=== PATIENT | female | born 1955 | race Caucasian/White ===

== ENCOUNTER 2017-08-04 22:19 | Inpatient (IN) | payer OTHER ==
[~2017-08-04] VITALS: Ht 170.2 cm; Wt 52.9 kg
[2017-08-04] MEDS ORDERED: NURSING VERBAL MED ORDER ONE (23:00)
[2017-08-04] MEDS ORDERED: NMN10 PO (23:04)
[2017-08-04] MEDS ORDERED: FAMO20TA11 PO (23:04)
[2017-08-04] MEDS ORDERED: DONE10TA12 PO (23:04)
[2017-08-04] MEDS ORDERED: PHEN1TAB86 PO (23:04)
[2017-08-04] MEDS ORDERED: CALC500C70 PO (23:06)
[2017-08-04] MEDS ORDERED: FOLI1TAB7 PO (23:06)
[2017-08-04] MEDS ORDERED: DIPH1TAB87 PO (23:11)
[2017-08-04] MEDS ORDERED: PHEN-310 PO (23:11)
[2017-08-04] MEDS ORDERED: DLN100 PO (23:13)
[2017-08-04] MEDS ORDERED: PATIENT'S ALLERGY INFO NEEDS ENTERED SCH (23:30)
[2017-08-05] MEDS ORDERED: SODIUM CHLORIDE 0.65% NA SOLN 45 ML (OCEAN) PRN (00:15)
[2017-08-05] MEDS ORDERED: MAGNESIUM HYDROXIDE SUSP 30 ML UDC PO PRN (00:15)
[2017-08-05] MEDS ORDERED: BISMUTH SUBSALICYLATE PER ML OMNICELL CHARGE PO PRN (00:15)
[2017-08-05] MEDS ORDERED: ACETAMINOPHEN 325 MG TAB PO PRN (00:15)
[2017-08-05] MEDS ORDERED: ALUMINUM/MAGNESIUM SUSP 30 ML UDC PO PRN (00:15)
[2017-08-05] MEDS ORDERED: PHENOBARBITAL 32.4 MG TAB PO ONE (00:30)
[2017-08-05 00:36] VITALS: BP 123/77; PULSE 78; TEMP 36.4; Ht 170.2 cm; Wt 52.9 kg
[2017-08-05 06:48] VITALS: BP_SYST 105; BP_SYST 111; BP_DIAS 67; BP_DIAS 76; PULSE 92; PULSE 99; TEMP 36.8
[2017-08-05] MEDS: FAMOTIDINE 20 MG TAB PO SCH (09:28)
[2017-08-05] MEDS: MEMANTINE 10 MG TAB PO SCH ×2 (09:28→21:54)
[2017-08-05] MEDS: NICOTINE 21 MG/24 HR TDSY TD SCH (09:34)
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
[2017-08-05] MEDS: CALCIUM 600MG + VIT D 400 IU TAB PO SCH (12:33)
[2017-08-05] MEDS ORDERED: POLYETHYLENE (MIRALAX) 17 GM PACK PO PRN (13:30)
[2017-08-05] MEDS: DONEPEZIL HCL 10 MG TAB PO SCH (21:54)
[2017-08-05] MEDS ORDERED: PHENOBARBITAL 32.4 MG TAB PO SCH (22:00)
[2017-08-06 06:42] VITALS: BP_SYST 102; BP_SYST 92; BP_DIAS 63; BP_DIAS 68; PULSE 88; PULSE 97; TEMP 36.4
[2017-08-06] MEDS: FAMOTIDINE 20 MG TAB PO SCH (08:49)
[2017-08-06] MEDS: MEMANTINE 10 MG TAB PO SCH ×2 (08:49→22:24)
[2017-08-06] MEDS: NICOTINE 21 MG/24 HR TDSY TD SCH (08:49)
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
[2017-08-06] MEDS: CALCIUM 600MG + VIT D 400 IU TAB PO SCH (12:44)
[2017-08-06] MEDS ORDERED: NURSING VERBAL MED ORDER ONE ×2 (15:15)
[2017-08-06] MEDS: DONEPEZIL HCL 10 MG TAB PO SCH (22:22)
[2017-08-06] MEDS: PHENYTOIN SODIUM ER 100 MG CAP PO SCH (22:23)
[2017-08-06] MEDS: PHENOBARBITAL 32.4 MG TAB PO SCH (22:24)
[2017-08-07 06:46] VITALS: BP_SYST 108; BP_SYST 94; BP_DIAS 65; BP_DIAS 73; PULSE 71; PULSE 78; TEMP 36.5
--- NOTE | 2017-08-07 08:31 | Psychiatric Progress Notes ---
Progress Note Date of Service Aug 07, 2017. Interval History Joan Flores is a 61-year-old female who currently lives in [place] with her daughter, has a history of dementia, genetic brain injury, and seizures, and presented as a referral from [facility] in [place] for worsening depression, suicidality, and an overdose on medications the night prior. She is admitted on a 302 involuntary commitment. Chief Complaint "I just got some really terrible news from my daughter". Subjective Patient was seen & assessed interval progress reviewed with Treatment Team. Staff report she had a family meeting with her 2 daughters by phone yesterday which went poorly. They shared that she has been calling them the past 2 days expressing suicidal thoughts, saying she doesn't want to live as everything has been taken from her. She blamed her daughters for her hospitalization and said she has no reason to live. Her daughters said the transition has been difficult for her, and they were willing to help her work on getting her own place eventually. Her daughter Arely is going to help her out with filing for bankruptcy, and agreed to manage her medications, but the patient refused to allow that (although she did agree that her daughter can keep the pills locked up for safety). The patient was angry, yelling, and pounding on the table. She complained both about feeling that too much is asked of her, and also that she is not being asked to help enough. Daughters feel like they are walking on eggshells and believe whatever approach they take will upset the patient. The patient said that it is too much to expect her to make suppers for the children , but when her daughter said that they could work out a meal schedule or plan, she got upset. Daughters do believe that patient has enough space in the home, as she has two rooms that are hers. They are concerned because she has left medicines out with young children present who could easily take her meds by mistake. Patient told her daughters that prior to her dying that he said that she should pick out a couple of places where she could go and that she should never tell her daughters where she is, and made comments about just leaving and driving somewhere after discharge. She was observed on the phone this morning, was distraught and wailing, and told staff that she received bad news about a custody bose over her grandson. She says she just found out that her daughter's youngest son may be taken away, as his paternal grandparents are filing for custody. She feels she is "needed at home," as the whole family is upset. She is tearful talking about her daughter's problems. She says she feels "calmer" and more stable, and denies SI. When asked about the statements she made to her daughters that concerned them, she says it was taken out of context , and that she does not want to hurt herself. She is now saying she will go back to live with her daughter, but also might go back to [facility] [place], as she "has to be a witness for my daughter." She continues to say she is "stable, I can drive," and is refusing to follow recommendations that she not drive, "I'm going to bose that! I know what roads to take across the [place], I've driven across it too many times!" She admits that she has dementia, but says now that she is back on "the dementia meds, my memory will come back." She says she is demanding to leave within 24 hours, or she will file a lawsuit. Sleep Information Total Hours of Sleep: 5.50 Meal Information Percent of Breakfast Consumed: 100 Percent of Lunch Consumed: 100 Percent of Dinner Consumed: 100 Mental Status Exam During interview pt is: alert and oriented, cooperative Appearance: appropriately dressed, disheveled, other (thin, unkempt) Eye contact is: fair Motor behavior is: steady gait & station, no abnormal motor movements Speech: is pressured, other (hyperverbal, loud, angry tone) Affect: irritable, angry, other (incongruent with stated mood) Mood is: other ("calmer") Thought process: tangential, other (frequently answers with unrelated information, required frequent redirection) Thought content: cognitive distortions, reality based without delusions Suicidal thought are: denied Homicidal thoughts are: denied Hallucinations: denies auditory, denies visual Cognition: language grossly intact, other (memory and attention impaired - scored 17/30 on the MOCA) Intelligence estimated to be: average Insight: impaired Judgement: impaired Impression This is a 61-year-old white female with an unclear psychiatric history ( at times denies any psych history, but at other times states she saw a psychiatrist years ago but can give no further information), also with a history of multiple traumatic brain injuries, epilepsy, and dementia, who presents with worsening mood and suicidality, and a possible overdose on prescription medication (Dilantin level elevated). Her daughter found her in the basement making statements about dying with pills scattered around her, and her phenytoin level was elevated, but the patient denies overdosing. She does admit to worsening mood with depression, irritability, and disrupted sleep, and this could represent a bipolar disorder or major depression, although accurate diagnosis is limited by the patient's cognitive dysfunction. Neurology consultation was requested regarding options with her seizure medications, as she is on phenytoin and phenobarbital, and has not been taking them appropriately; they recommended a lower dose of Dilantin and correction attempt to decrease phenobarbital, and addition of lamotrigine. She had a meeting with both daughters 08/06 which did not go well, as there are numerous stresses and the patient has poor insight. She is denying SI and engaging in treatment, and I do not believe she will meet 303 criteria. She will need outpatient follow- up with a psychiatrist and neurologist. Plan (1) Bipolar disorder Differential includes major depression, bipolar type I, mood disorder due to a general medical condition (TBI). Get collateral information from her daughter, and schedule a family meeting. Patient did not want discuss medications today, and cannot state if she has ever been on an antidepressant or mood stabilizer in the past. Based on information we have so far, I would be in favor of a trial of an antiepileptic mood stabilizer such as Depakote or lamotrigine. We will ask neurology for their input regarding her seizure medications as well. Continue to monitor for mood symptoms here, and she will need referral for outpatient mental health treatment, including a psychiatrist and a therapist. 08/06 - Patient demonstrates mood lability, with mixed depressive and manic symptoms ( prominently irritability without euphoria); most accurate diagnosis is bipolar disorder. - Lability is slightly improved from admission, likely due to removal from her stressful environment at her daughter's home. After discussion with Dr. Wong of neurology, I will start lamotrigine 25 mg daily to target both mood and seizures, and this can be titrated up as an outpatient over the next month. - Family meeting with daughters by phone today to discuss stressors at home and her living situation and safety plan for discharge planning. - Daughter would like her to follow-up with psychiatric services at [facility] in [place]. 08/07 - Continue current plan. Referred to [facility] for OP psychiatric services. - FM held yesterday, patient was labile and agitated, and daughter agreed to te all meds for safety. Daughters were also informed of medical recommendation that she not drive, although patient is stating she will not follow this. - Pt denying SI and is participating in treatment, and although slightly improved, still agitated and labile. However, will not meet 303 criteria, and is asking to leave. Will continue involuntary admission at this time as she would benefit from further stabilization prior to discharge. Will involve daughters in discharge planning as well. (2) Seizure disorder 08/05 - Hold phenytoin his level remains elevated, continue phenobarbital, and consult neurology for recommendations regarding her seizure medications. I'm wondering if it would be appropriate to switch her to something like Depakote or lamotrigine, which could also be helpful for mood stabilization, as I'm somewhat concerned about her being on phenobarbital and phenytoin, especially if she is not taking them appropriately which is likely given her elevated level. I'm also concerned about the overdose potential given her suicidality. She will likely need an outpatient neurologist to follow-up with on discharge. 08/06 - Reviewed case with Dr. Wong, appreciate recommendations. Rechecked phenytoin level today, and she is no longer toxic, so will resume a lower dose of 400 mg daily at bedtime tonight. She will need a repeat level in 5-7 days. - Continue home dose of phenobarbital, as Dr. Wong did not think it would be easy to get her off this medication, although she may be able to taper slowly off of it over a period of months. Ideally she would not be on medications that are dangerous in overdose or oversedating/cognitively impairing, given her erratic use of medications at home and noncompliance with prescribed doses, as well as the risk of intentional overdose. - Start lamotrigine 25 mg daily as above. - Daughter would like patient referred to neurology [facility] in [place] for outpatient follow-up. 08/07 - Continue current plan. (3) Dementia Continue Aricept, and attempt to get outpatient neurology records from [place]. She will need referral to follow-up with a neurologist in [place]. 08/06 - outpatient neurology records from [place] received and reviewed. - Patient scored a 17 out of 30 on the MOCA, and advised her that she should not drive until she has had some additional testing as I'm concerned about her cognitive limitations. [employer] TOM initial reporting form submitted. Discharge / Aftercare Planning Primary Care Physician: Name: PCP in [facility] Psychiatrist: Name: Sushantnehal Darling Kathleen Appointment Notes: They will call you at home to schedule appointment. Therapist: Name: .Clarissa [place] Appointment Notes: They will call you at home to schedule appointment Planning Director: Name: none Visit Code E&M Code: 08459 Inventory Assets Strengths: supportive family, has housing Risk Factors Assessment : Yes /single/: Yes Higher / Fall in social status: Yes Health problems: Yes Mental Health Diagnoses: Yes Substance use disorders: No Previous attempt: Yes Family history of suicide: No Previous psychiatric stay: No Hopelessness: Yes Smoker: Yes Protective Factors Assessment : No Responsible for young children: No Employed: No Stable relationships: No Supportive family: Yes Good rapport with provider: No Data Vital Signs Last 24 Hrs: Date Time Temp Pulse Resp B/P (MAP) Pulse Ox O2 Delivery O2 Flow Rate FiO2 08/07/17 06:46 36.5 78 16 108/73 71 94/65 Meds Administered Last 24 Hrs: Meds Administered (Past 24Hrs) Medications (Trade) Dose Ordered Sig/Bre Route Start Time Stop Time Status Last Admin Dose Admin Nicotine (Nicoderm Cq 21MG Patch) 1 patch QAM TD 08/05/17 09:00 09/04/17 08:59 08/06/17 08:49 1 PATCH Donepezil HCl (Aricept Tab) 10 mg HS PO 08/05/17 22:00 09/04/17 21:59 08/06/17 22:22 10 MG Memantine (Namenda Tab) 10 mg BID PO 08/05/17 09:00 09/04/17 08:59 08/06/17 22:24 10 MG Famotidine (Pepcid Tab) 20 mg DAILY PO 08/05/17 09:00 09/04/17 08:59 08/06/17 08:49 20 MG Folic Acid (Folvite Tab) 1 mg DAILY PO 08/05/17 09:00 09/04/17 08:59 08/06/17 08:49 1 MG Calcium/Vitamin D (Caltrate Plus Tab) 1 tab DAILY@1200 PO 08/05/17 12:00 09/04/17 11:59 08/06/17 12:44 1 TAB Diphenhydramine HCl (Benadryl Cap) 25 mg HS PO 08/06/17 00:30 09/05/17 00:29 08/06/17 22:24 25 MG Phenobarbital (Phenobarbital Tab) 64.8 mg HS PO 08/06/17 22:00 09/05/17 21:59 08/06/17 22:24 64.8 MG Lamotrigine (Lamictal Tab) 25 mg 1035 ONCE PO 08/06/17 10:35 08/06/17 11:32 DC 08/06/17 12:44 25 MG Phenytoin Sodium (Dilantin Er Cap) 400 mg HS PO 08/06/17 22:00 09/05/17 21:59 08/06/17 22:23 400 MG Lab Results Last 24 Hrs: Last 24 Hours Test 08/06/17 11:05 Phenytoin (Dilantin) Level 14.2 mcg/mL Problem Qualifiers (1) Bipolar disorder: Active/Remission status: currently active Current bipolar episode type: mixed Current episode severity: unspecified Qualified Codes: F31.60 - Bipolar disorder, current episode mixed, unspecified
[2017-08-07] MEDS: FAMOTIDINE 20 MG TAB PO SCH (08:33)
[2017-08-07] MEDS: NICOTINE 21 MG/24 HR TDSY TD SCH (08:34)
[2017-08-07] MEDS: MEMANTINE 10 MG TAB PO SCH ×2 (08:34→21:08)
[2017-08-07] MEDS: CALCIUM 600MG + VIT D 400 IU TAB PO SCH (14:22)
[2017-08-07] MEDS: NICOTINE POLACRILEX 2 MG GUM MT PRN (19:36)
[2017-08-07] MEDS: PHENOBARBITAL 32.4 MG TAB PO SCH (21:09)
[2017-08-07] MEDS: DONEPEZIL HCL 10 MG TAB PO SCH (21:10)
[2017-08-07] MEDS: PHENYTOIN SODIUM ER 100 MG CAP PO SCH (21:11)
[2017-08-08 06:34] VITALS: BP_SYST 100; BP_SYST 89; BP_DIAS 60; BP_DIAS 70; PULSE 80; PULSE 84; TEMP 36.7
[2017-08-08] MEDS: MEMANTINE 10 MG TAB PO SCH ×2 (07:54→21:43)
[2017-08-08] MEDS: NICOTINE 21 MG/24 HR TDSY TD SCH (07:54)
[2017-08-08] MEDS: FAMOTIDINE 20 MG TAB PO SCH (07:54)
--- NOTE | 2017-08-08 08:25 | Psychiatric Progress Notes ---
Progress Note Date of Service Aug 08, 2017. Interval History Joan Flores is a 61-year-old female who currently lives in [place] with her daughter, has a history of dementia, genetic brain injury, and seizures, and presented as a referral from [facility] in [place] for worsening depression, suicidality, and an overdose on medications the night prior. She is admitted on a 302 involuntary commitment. Chief Complaint "Look at these pants my daughter brought me to wear!" Subjective Patient was seen & assessed interval progress reviewed with Nursing. Staff report she attended groups, was talkative and at times went off on tangents, but was redirectable. Although she was distraught and crying on the phone, she then attended group and rated her mood a 10 out of 10. Today, she says mood has improved, as she talked to her daughters and they made a plan for her to come home tomorrow, her BECCA is taking time off work to come get her, and she feels calmer today. She talked to her daughters some more about the CYS case with her grandson, and feels reassured that they are taking care of it, and says her daughter has a pack train driver and won't have to go to [place] to go to court, but can do it over the phone in Aug. She hopes they will be able to collect signatures of people to support the in court as good caregivers for the child. She says her mood is improving, feels less angry and labile, and denies SI. She denies side effects to medications. Sleep Information Total Hours of Sleep: 5.75 Meal Information Percent of Breakfast Consumed: 100 Percent of Lunch Consumed: 100 Percent of Dinner Consumed: 95 Mental Status Exam During interview pt is: alert and oriented, cooperative Appearance: appropriately dressed, disheveled, other (thin, unkempt, malodorous ) Eye contact is: fair Motor behavior is: steady gait & station, no abnormal motor movements Speech: normal in rate, rhythm & volume (spontaneous, hyperverbal, less pressured) Affect: constricted, other (incongruent with stated mood) Mood is: other ("getting better each day") Thought process: circumstantial Thought content: cognitive distortions, reality based without delusions Suicidal thought are: denied Homicidal thoughts are: denied Hallucinations: denies auditory, denies visual Cognition: language grossly intact, other (memory and attention impaired - scored 17/30 on the MOCA) Intelligence estimated to be: average Insight: fair Judgement: fair Impression This is a 61-year-old white female with an unclear psychiatric history ( at times denies any psych history, but at other times states she saw a psychiatrist years ago but can give no further information), also with a history of multiple traumatic brain injuries, epilepsy, and dementia, who presents with worsening mood and suicidality, and a possible overdose on prescription medication (Dilantin level elevated). Her daughter found her in the basement making statements about dying with pills scattered around her, and her phenytoin level was elevated, but the patient denies overdosing. She does admit to worsening mood with depression, irritability, and disrupted sleep, and this could represent a bipolar disorder or major depression, although accurate diagnosis is limited by the patient's cognitive dysfunction. Neurology consultation was requested regarding options with her seizure medications, as she is on phenytoin and phenobarbital, and has not been taking them appropriately; they recommended a lower dose of Dilantin and terminal operator attempt to decrease phenobarbital, and addition of lamotrigine. She had a meeting with both daughters 08/06 which did not go well, as there are numerous stresses and the patient has poor insight. She is denying SI and engaging in treatment, and I do not believe she will meet 303 criteria, and we are planning for discharge 08/09. She will need outpatient follow-up with a psychiatrist and neurologist. Plan (1) Bipolar disorder Differential includes major depression, bipolar type I, mood disorder due to a general medical condition (TBI). Get collateral information from her daughter, and schedule a family meeting. Patient did not want discuss medications today, and cannot state if she has ever been on an antidepressant or mood stabilizer in the past. Based on information we have so far, I would be in favor of a trial of an antiepileptic mood stabilizer such as Depakote or lamotrigine. We will ask neurology for their input regarding her seizure medications as well. Continue to monitor for mood symptoms here, and she will need referral for outpatient mental health treatment, including a psychiatrist and a therapist. 08/06 - Patient demonstrates mood lability, with mixed depressive and manic symptoms ( prominently irritability without euphoria); most accurate diagnosis is bipolar disorder. - Lability is slightly improved from admission, likely due to removal from her stressful environment at her daughter's home. After discussion with Dr. Wong of neurology, I will start lamotrigine 25 mg daily to target both mood and seizures, and this can be titrated up as an outpatient over the next month. - Family meeting with daughters by phone today to discuss stressors at home and her living situation and safety plan for discharge planning. - Daughter would like her to follow-up with psychiatric services at [facility]. 08/07 - Continue current plan. Referred to [facility] for OP psychiatric services. - FM held yesterday, patient was labile and agitated, and daughter agreed to te all meds for safety. Daughters were also informed of medical recommendation that she not drive, although patient is stating she will not follow this. - Pt denying SI and is participating in treatment, and although slightly improved, still agitated and labile. However, will not meet 303 criteria, and is asking to leave. Will continue involuntary admission at this time as she would benefit from further stabilization prior to discharge. Will involve daughters in discharge planning as well. 08/08 - SW attempting to get outpatient psychiatric f/u at [facility], but they are stating it may take 4 days for them to review the referral. Ideally she would have an appointment at the time of discharge. - Patient continues to deny SI, but has frequent mood swings and irritability, may be in part due to personality disorder vs dementia, rather than true bipolar disorder. - Plan is for discharge tomorrow, daughter to strip picker, will need prescription for lamotrigine and lab slip for Dilantin level. - Patient has been informed that she is not medically cleared to drive, due to her cognitive impairment and dementia, and [place] DOT form submitted. She indicates she is not willing to follow this recommendation, and her daughters have been informed of these recommendations as well. (2) Seizure disorder 08/05 - Hold phenytoin his level remains elevated, continue phenobarbital, and consult neurology for recommendations regarding her seizure medications. I'm wondering if it would be appropriate to switch her to something like Depakote or lamotrigine, which could also be helpful for mood stabilization, as I'm somewhat concerned about her being on phenobarbital and phenytoin, especially if she is not taking them appropriately which is likely given her elevated level. I'm also concerned about the overdose potential given her suicidality. She will likely need an outpatient neurologist to follow-up with on discharge. 08/06 - Reviewed case with Dr. Wong, appreciate recommendations. Rechecked phenytoin level today, and she is no longer toxic, so will resume a lower dose of 400 mg daily at bedtime tonight. She will need a repeat level in 5-7 days. - Continue home dose of phenobarbital, as Dr. Wong did not think it would be easy to get her off this medication, although she may be able to taper slowly off of it over a period of months. Ideally she would not be on medications that are dangerous in overdose or oversedating/cognitively impairing, given her erratic use of medications at home and noncompliance with prescribed doses, as well as the risk of intentional overdose. - Start lamotrigine 25 mg daily as above. - Daughter would like patient referred to neurology [facility] in [place] for outpatient follow-up. 08/07 - Continue current plan. 08/08 - Continue lower dose Dilantin, home dose of phenobarbital, and lamotrigine. Will need a Dilantin level on or after 08/10/17, will need lab slip at discharge with results to be sent to [facility] where she has been referred for neurology follow up. (3) Dementia Continue Aricept, and attempt to get outpatient neurology records from [place]. She will need referral to follow-up with a neurologist in [place]. 08/06 - outpatient neurology records from [place] received and reviewed. - Patient scored a 17 out of 30 on the MOCA, and advised her that she should not drive until she has had some additional testing as I'm concerned about her cognitive limitations. [employer] TOM initial reporting form submitted. 08/08 - c/o hard stools and requesting stool softener - colace added. Discharge / Aftercare Planning Primary Care Physician: Name: Clarissa Vera-Lucia NGUYỄN Date of Appointment: Nov 01, 2016 Time of Appointment: 1:45pm Appointment Notes: [address] [place] [address] Psychiatrist: Name: Clarissa Wang Appointment Notes: They will call you at home to schedule appointment. Therapist: Name: .Clarissa Wang Appointment Notes: They will call you at home to schedule appointment Environmental Health Manager: Name: none Neurologist: Name: Clarissa Wang- Dr Green Date of Appointment: Aug 21, 2017 Time of Appointment: 4:05pm Visit Code E&M Code: 73062 Inventory Assets Strengths: supportive family, has housing Risk Factors Assessment : Yes /single/: Yes Higher / Fall in social status: Yes Health problems: Yes Mental Health Diagnoses: Yes Substance use disorders: No Previous attempt: Yes Family history of suicide: No Previous psychiatric stay: No Hopelessness: Yes Smoker: Yes Protective Factors Assessment Jewish beliefs: Yes : No Responsible for young children: No Employed: No Stable relationships: No Supportive family: Yes Good rapport with provider: No Data Vital Signs Last 24 Hrs: Date Time Temp Pulse Resp B/P (MAP) Pulse Ox O2 Delivery O2 Flow Rate FiO2 08/08/17 06:34 36.7 80 16 100/70 84 89/60 Meds Administered Last 24 Hrs: Meds Administered (Past 24Hrs) Medications (Trade) Dose Ordered Sig/Bre Route Start Time Stop Time Status Last Admin Dose Admin Phenobarbital (Phenobarbital Tab) 64.8 mg HS PO 08/06/17 22:00 09/05/17 21:59 08/07/17 21:09 64.8 MG Lamotrigine (Lamictal Tab) 25 mg QAM PO 08/07/17 09:00 09/06/17 08:59 08/08/17 07:53 25 MG Lamotrigine (Lamictal Tab) 25 mg 1035 ONCE PO 08/06/17 10:35 08/06/17 11:32 DC 08/06/17 12:44 25 MG Phenytoin Sodium (Dilantin Er Cap) 400 mg HS PO 08/06/17 22:00 09/05/17 21:59 08/07/17 21:11 400 MG Nicotine Polacrilex (Nicorette 2MG Gum) 1 piece Q2HWA PRN MT 08/06/17 15:15 09/05/17 15:14 08/07/17 19:36 1 PIECE Problem Qualifiers (1) Bipolar disorder: Active/Remission status: currently active Current bipolar episode type: mixed Current episode severity: unspecified Qualified Codes: F31.60 - Bipolar disorder, current episode mixed, unspecified
[2017-08-08] MEDS: DOCUSATE SODIUM 100 MG CAP PO SCH ×2 (09:06→21:43)
[2017-08-08] MEDS: CALCIUM 600MG + VIT D 400 IU TAB PO SCH (12:47)
[2017-08-08] MEDS: NICOTINE POLACRILEX 2 MG GUM MT PRN (16:08)
[2017-08-08] MEDS: DONEPEZIL HCL 10 MG TAB PO SCH (21:41)
[2017-08-08] MEDS: PHENOBARBITAL 32.4 MG TAB PO SCH (21:42)
[2017-08-08] MEDS: PHENYTOIN SODIUM ER 100 MG CAP PO SCH (21:42)
[2017-08-09 06:59] VITALS: BP_SYST 105; BP_SYST 96; BP_DIAS 59; BP_DIAS 67; PULSE 86; PULSE 90; TEMP 36.8
[2017-08-09] MEDS: FAMOTIDINE 20 MG TAB PO SCH (08:11)
[2017-08-09] MEDS: DOCUSATE SODIUM 100 MG CAP PO SCH (08:11)
[2017-08-09] MEDS: MEMANTINE 10 MG TAB PO SCH (08:11)
[2017-08-09] MEDS: NICOTINE 21 MG/24 HR TDSY TD SCH (08:12)
[2017-08-09] MEDS ORDERED: DLN100 PO (09:26)
[2017-08-09] MEDS ORDERED: LMC25 PO (09:26)
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
[2017-08-09] MEDS ORDERED: NMN10 PO (10:43)
[2017-08-09] MEDS ORDERED: ARC10 PO (10:43)
== END 2017-08-09 11:00 | disposition home or self-care (01) | DRG 885 ==
LOC: C.MHU 23:26
PROVIDERS: ADMIT Psychiatry & Neurology Psychiatry; ATTEND Psychiatry & Neurology Psychiatry
DX: F31.60 Bipolar disorder, current episode mixed, unspecified (principal); Z68.1 Body mass index [BMI] 19.9 or less, adult; F03.90 Unspecified dementia, unspecified severity, without behavioral disturbance, psychotic disturbance, mood disturbance, and anxiety; G40.909 Epilepsy, unspecified, not intractable, without status epilepticus; Z88.0 Allergy status to penicillin; R63.6 Underweight; S06.9X9S Unspecified intracranial injury with loss of consciousness of unspecified duration, sequela; X58.XXXS Exposure to other specified factors, sequela; F39 Unspecified mood [affective] disorder